=== PATIENT | female | born 1970 | race Caucasian/White ===

== ENCOUNTER 2016-11-23 21:09 | Emergency (ER) | payer OTHER ==
[~2016-11-23] VITALS: Ht 177.8 cm; Wt 171.0 kg
[~2016-11-23 21:09] MED LIST: ADVAIR 250/501 DISK IH; ALBUTEROL SULF8.5 GM IH; ALBUTEROL2.5 MG/3 M IH; ATARAX,VISTARIL25 MG PO; AZITHROMYCIN250 MG PO; ELIMITE 5% CREA60 GM TP; FLEXERIL10 MG PO; FLOVENT 44120 INHALA IH; GUAIFENESIN WI120 ML PO; KEFLEX500 MG PO; LEVAQUIN500 MG PO; NAPROSYN500 MG PO; PREDNISONE20 MG PO; PREDNISONE50 MG PO; VICODIN 5-3001 EACH PO; ZITHROMAX Z-PA250 MG PO
[2016-11-23 22:40] LABS: INFLUENZA A VIRAL ANTIGEN NEGATIVE; INFLUENZA B VIRAL ANTIGEN NEGATIVE
[2016-11-23] MEDS ORDERED: FLOXIN OTIC SOLN5 ML BOTH EARS (22:45)
[2016-11-23] MEDS ORDERED: PREDNISONE20 MG PO (22:45)
[2016-11-23 23:02] VITALS: BP 169/99
== END 2016-11-23 23:06 | disposition home or self-care (01) ==
LOC: EME 21:09
PROVIDERS: Nurse Practitioner Family
DX: J45.901 Unspecified asthma with (acute) exacerbation (principal); H66.93 Otitis media, unspecified, bilateral; J06.9 Acute upper respiratory infection, unspecified; Z88.0 Allergy status to penicillin
CPT/HCPCS: 71020; 87502; 87651 90; 94640; 99281; 99284

== ENCOUNTER 2017-11-21 23:46 | Emergency (ER) | payer SELFPAY ==
[~2017-11-21] VITALS: Ht 175.3 cm; Wt 179.1 kg
[~2017-11-21 23:46] MED LIST changes: +FLOXIN OTIC SOLN5 ML BOTH EARS
[2017-11-22] MEDS ORDERED: VENTOLIN HFA18 GM IH (02:26)
[2017-11-22] MEDS ORDERED: PREDNISONE20 MG PO (02:26)
[2017-11-22 02:33] VITALS: BP 136/84
== END 2017-11-22 02:35 | disposition home or self-care (01) ==
LOC: EME 23:46
DX: J45.901 Unspecified asthma with (acute) exacerbation (principal); E66.9 Obesity, unspecified; Z68.43 Body mass index [BMI] 50.0-59.9, adult; Z77.22 Contact with and (suspected) exposure to environmental tobacco smoke (acute) (chronic); Z87.891 Personal history of nicotine dependence; Z88.0 Allergy status to penicillin
CPT/HCPCS: 71046; 94640; 99281; 99284; J7512

== ENCOUNTER 2017-12-15 00:27 | Emergency (ER) | payer SELFPAY ==
[~2017-12-15] VITALS: Ht 175.3 cm; Wt 179.2 kg
[~2017-12-15 00:27] MED LIST changes: +VENTOLIN HFA18 GM IH
[2017-12-15 01:18] LABS: HEMATOCRIT 38.2 % (36.0-46.0); HEMOGLOBIN 12.8 G/DL (11.9-15.5); MCHC 33.5 G/DL (30.0-36.0); MCV 98.5 FL (83-99); PLATELET COUNT 312 K/uL (156-360); RBC DIS.WIDTH-CV 12.4 % (11.8-14.6); RBC DIS.WIDTH-SD 44.5 % (39-53); RED BLOOD COUNT 3.88 M/uL (3.80-5.20); WHITE BLOOD COUNT 6.2 K/uL (4.1-10.2)
[2017-12-15 01:35] LABS: CHLORIDE 102 mEq/L (99-109); POTASSIUM 3.9 mEq/L (3.7-5.4); SODIUM 138 mEq/L (136-147)
[2017-12-15 01:37] LABS: GLUCOSE 120 mg/dL (70-99)
[2017-12-15 01:41] LABS: CREATININE 0.9 mg/dL (0.6-1.3); GFR ESTIMATE (CALCULATED) > 59 mL/min/
[2017-12-15 01:42] LABS: UREA NITROGEN (BUN) 16 mg/dL (9-23)
[2017-12-15 01:44] LABS: TROP-I INTERPRETATION NEGATIVE; TROPONIN-I < 0.01 ng/mL (0.0-0.30)
[2017-12-15 03:40] LABS: TROP-I INTERPRETATION NEGATIVE; TROPONIN-I < 0.01 ng/mL (0.0-0.30)
[2017-12-15 04:16] VITALS: BP 121/73
== END 2017-12-15 04:18 | disposition home or self-care (01) ==
LOC: EME 00:27
PROVIDERS: Emergency Medicine
DX: R07.9 Chest pain, unspecified (principal); I48.91 Unspecified atrial fibrillation; R00.2 Palpitations; R06.02 Shortness of breath; J45.909 Unspecified asthma, uncomplicated; Z90.710 Acquired absence of both cervix and uterus; Z88.0 Allergy status to penicillin; Z87.891 Personal history of nicotine dependence
CPT/HCPCS: 71045; 80048; 84484; 85027; 85379; 93005; 99281; 99284

== ENCOUNTER 2018-02-12 13:40 | Emergency (ER) | payer SELFPAY ==
[~2018-02-12] VITALS: Ht 177.8 cm; Wt 177.0 kg
[2018-02-12] MEDS ORDERED: DELTASONE20 M1 PO (15:46)
[2018-02-12] MEDS ORDERED: FLOVENT 44120 INHALA IH (15:46)
[2018-02-12 16:38] VITALS: BP 116/70
== END 2018-02-12 16:42 | disposition home or self-care (01) ==
LOC: EME 13:40
DX: J45.909 Unspecified asthma, uncomplicated (principal); S90.32XA Contusion of left foot, initial encounter; W22.8XXA Striking against or struck by other objects, initial encounter; Z87.891 Personal history of nicotine dependence; Z90.710 Acquired absence of both cervix and uterus; Z88.0 Allergy status to penicillin; Z88.4 Allergy status to anesthetic agent
CPT/HCPCS: 71046; 73660; 94640; 99281; 99284; J7512